=== PATIENT | female | born 1975 | race African-American/Black ===

== ENCOUNTER 2018-06-19 16:17 | Emergency (ER) | payer OTHER ==
[2018-06-19 16:23] VITALS: BP 147/93; TEMP 98.3; BMI 30.9
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
[2018-06-19 18:04] LABS: BASO % 2.6 % (0-2.0); EOS % 2.9 % (0-4.5); HEMATOCRIT 31.7 % (32.4-45.2); HEMOGLOBIN 11.3 GM/dL (10.7-15.3); LYMPH % 42.6 % (8-40); MCH 29.4 pg (25.7-33.7); MCHC 35.5 g/dl (32.0-36.0); MEAN CELL VOLUME 82.7 fl (80-96); MONO % 6.3 % (3.8-10.2); NEUT % 45.6 % (42.8-82.8); PLATELET COUNT 350 K/MM3 (134-434); RBC 3.83 M/mm3 (3.60-5.2); RDW 14.9 % (11.6-15.6)
[2018-06-19 18:05] VITALS: PULSE 78
[2018-06-19 18:08] LABS: PLATELET ESTIMATE INCREASED
[2018-06-19 18:26] LABS: ALBUMIN 3.7 g/dl (3.4-5.0); ALK PHOS 74 U/L (45-117); ANION GAP 8 MMOL/L (8-16); BILIRUBIN,TOTAL 0.2 mg/dL (0.2-1); BLOOD UREA NITROGEN 16 mg/dL (7-18); CALCIUM 8.9 mg/dL (8.5-10.1); CHLORIDE 106 mmol/L (98-107); CO2 26 mmol/L (21-32); CREATININE 1.1 mg/dL (0.55-1.3); GLUCOSE,RANDOM 150 mg/dL (74-106); POTASSIUM 3.9 mmol/L (3.5-5.1); SGOT/AST 15 U/L (15-37); SGPT/ALT 29 U/L (13-61); SODIUM 140 mmol/L (136-145); TOT PROT 7.4 g/dl (6.4-8.2)
[2018-06-19 19:02] LABS: URINE APPEARANCE SLCLOUDY; URINE BILIRUBIN NEGATIVE (<2.0 mg/dL); URINE COLOR YELLOW; URINE GLUCOSE (UA) NEGATIVE (NEGATIVE); URINE KETONE NEGATIVE (NEGATIVE); URINE LEUK ESTERASE NEGATIVE (NEGATIVE); URINE NITRITE NEGATIVE (NEGATIVE); URINE PROTEIN NEGATIVE (NEGATIVE); URINE UROBILINOGEN NEGATIVE mg/dL (0.2-1.0)
[2018-06-19 19:03] LABS: HCG,QUALITATIVE URINE Negative
== END 2018-06-19 19:00 | disposition home or self-care (01) ==
LOC: JERFT 16:17
DX: R42 Dizziness and giddiness (principal); E11.9 Type 2 diabetes mellitus without complications; Z79.84 Long term (current) use of oral hypoglycemic drugs; I10 Essential (primary) hypertension
CPT/HCPCS: 36415; 80053; 80307; 81003; 84703; 85025; 99282-25